=== PATIENT | male | born 1970 | race Caucasian/White ===

== ENCOUNTER 2020-01-18 20:44 | Emergency (ER) | payer OTHER, SELFPAY ==
[~2020-01-18] VITALS: Ht 177.8 cm; Wt 90.7 kg
[2020-01-18 20:48] VITALS: BP 139/83; Ht 177.8 cm; Wt 90.7 kg
== END 2020-01-18 21:46 | disposition home or self-care (01) ==
LOC: ED 20:44
DX: U07.1 COVID-19 (principal)
CPT/HCPCS: U0003-CS

== ENCOUNTER 2020-01-22 20:14 | Emergency (ER) | payer OTHER, SELFPAY ==
[~2020-01-22] VITALS: Ht 177.8 cm; Wt 96.2 kg
[2020-01-22 20:18] VITALS: BP 121/75; Ht 177.8 cm; Wt 96.2 kg
== END 2020-01-22 20:34 | disposition left against medical advice (07) ==
LOC: ED 20:14
DX: Z53.21 Procedure and treatment not carried out due to patient leaving prior to being seen by health care provider (principal)